=== PATIENT | female | born 1990 ===

== ENCOUNTER 2019-05-08 00:45 | Emergency (ER) | payer OTHER ==
--- NOTE | 2019-05-08 01:51 | Emergency Department Report ---
ED Psych HPI - General Chief Complaint: Psych Stated Complaint: MH EVAL Time Seen by Provider: 05/08/19 01:46 Source: patient Mode of arrival: Ambulatory - History of Present Illness Initial Comments: Patient is a 28-year-old female that presents emergency with complaints of suic idal ideations, racing thoughts, needing mental evaluation. Patient states she can't control her thoughts. Patient states she has suicidal ideation but no plan. Patient states she is having audiovisual hallucinations. Patient states her family is after her. MD Complaint: suicidal ideation, feels depressed -: Sudden Associated Psychiatric Symptoms: suicidal ideation, racing thoughts, auditory hallucinations, visual hallucinations, delusions History of same: Yes Quality: constant Improves With: none Worsens With: none Associated Symptoms: denies other symptoms If Self Harm: admits thoughts of - Related Data Home Medications Medication Instructions Recorded Confirmed Last Taken Unobtainable 05/08/19 05/08/19 Unknown Allergies Allergy/AdvReac Type Severity Reaction Status Date / Time No Known Allergies Allergy Verified 05/08/19 00:50 ED Review of Systems ROS: Stated complaint: EVAL Other details as noted in HPI Constitutional: denies: chills, fever Eyes: denies: eye pain, eye discharge, vision change ENT: denies: ear pain, throat pain Respiratory: denies: cough, shortness of breath, wheezing Cardiovascular: denies: chest pain, palpitations Endocrine: no symptoms reported Gastrointestinal: denies: abdominal pain, nausea, diarrhea Genitourinary: denies: urgency, dysuria, discharge Musculoskeletal: denies: back pain, joint swelling, arthralgia Skin: denies: rash, lesions Neurological: denies: headache, weakness, paresthesias Psychiatric: as per HPI, auditory hallucinations, visual hallucinations, suicidal thoughts Hematological/Lymphatic: denies: easy bleeding, easy bruising ED Past Medical Hx - Past Medical History Previous Medical History?: Yes Hx Psychiatric Treatment: Yes (unable to assess) - Surgical History Past Surgical History?: No - Family History Family history: no significant - Social History Smoking Status: Former Smoker Substance Use Type: None - Medications Home Medications: Home Medications Medication Instructions Recorded Confirmed Last Taken Type Unobtainable 05/08/19 05/08/19 Unknown History ED Physical Exam - General Limitations: No Limitations General appearance: alert, in no apparent distress - Head Head exam: Present: atraumatic, normocephalic - Eye Eye exam: Present: normal appearance - ENT ENT exam: Present: mucous membranes moist - Neck Neck exam: Present: normal inspection - Respiratory Respiratory exam: Present: normal lung sounds bilaterally. Absent: respiratory distress - Cardiovascular Cardiovascular Exam: Present: regular rate, normal rhythm. Absent: systolic murmur, diastolic murmur, rubs, gallop - GI/Abdominal GI/Abdominal exam: Present: soft, normal bowel sounds - Extremities Exam Extremities exam: Present: normal inspection - Back Exam Back exam: Present: normal inspection - Neurological Exam Neurological exam: Present: alert, oriented X3 - Expanded Psychiatric Exam Expanded Focused psych exam: Present: pressured speech, internal stimuli, delusional, restlessness, flight of ideas - Skin Skin exam: Present: warm, dry, intact, normal color. Absent: rash ED Course Vital Signs 05/08/19 05/08/19 05/08/19 01:10 01:38 08:55 Temperature 97.9 F 98.0 F 98.8 F Pulse Rate 86 100 H 104 H Respiratory 18 20 Rate Blood Pressure 110/60 111/76 109/72 [Right] O2 Sat by Pulse 96 99 100 Oximetry - Reevaluation(s) Reevaluation #1: Initial evaluation done. Patient found to have acute psychosis with suicidal ideation without a plan. Due to the fact the patient is having acute psychosis with autoimmune disorder hallucinations, the patient will placed on a 1013 05/08/19 01:48 Reevaluation #2: Patient is medically cleared. Patient will remain ER. Patient is a 1013 and final disposition will come from our psychiatry team. 05/08/19 03:47 ED Medical Decision Making - Lab Data Result diagrams: 05/08/19 01:56 05/08/19 01:56 - Medical Decision Making Patient is a 28-year-old female that presents emergency with complaints of delusions, suicidal ideations, erratic behavior. Patient was placed on 1013 for her symptoms. Patient had labs done. Patient's labs were unremarkable. Patient was medically cleared. Patient's final disposition was received from the psychiatry team and the patient was transferred to a inpatient unit. - Differential Diagnosis suicidal ideations, acute psychosis, delusions, Critical care attestation.: If time is entered above; I have spent that time in minutes in the direct care of this critically ill patient, excluding procedure time. ED Disposition Clinical Impression: Acute psychosis, Delusion, Suicidal ideation Disposition: [id number] PSY HOSP/PSY UNIT Is pt being admited?: No Does the pt Need Aspirin: No Condition: Stable Referrals: PRIMARY CARE, [Primary Care Provider] - 2-3 Days Time of Disposition: 03:47
[2019-05-08 02:20] LABS: Basophils % (Auto) 0.7 % (0.0-1.8); Eosinophils % (Auto) 0.5 % (0.0-4.3); Hematocrit 38.3 % (30.3-42.9); Lymphocytes # (Auto) 1.4 K/mm3 (1.2-5.4); Lymphocytes % (Auto) 21.5 % (13.4-35.0); Mean Corpuscular HGB Conc 34 % (30-34); Mean Corpuscular Volume 79 fl (79-97); Monocytes # (Auto) 0.7 K/mm3 (0.0-0.8); Monocytes % (Auto) 11.6 % (0.0-7.3); Platelet Count 237 K/mm3 (140-440); Red Blood Count 4.83 M/mm3 (3.65-5.03); Red Cell Distribution Width 13.8 % (13.2-15.2)
[2019-05-08 02:25] LABS: Bacteria,Urine 2+ /HPF (Negative); Bilirubin,Urine NEG (Negative); Blood,Urine NEG (Negative); Color,Urine Amber (Yellow); Mucus,Urine 3+ /HPF; Protein,Urine <15 mg/dL mg/dL (Negative)
[2019-05-08 02:34] LABS: Amphetamine Screen,Urine PRESUMPTIVE NEGATIVE; Benzodiazepines Screen,Urine PRESUMPTIVE NEGATIVE; Cannabinoid Screen,Urine PRESUMPTIVE NEGATIVE; Cocaine Screen,Urine PRESUMPTIVE NEGATIVE; Methadone Screen,Urine PRESUMPTIVE NEGATIVE; Opiate Screen,Urine PRESUMPTIVE NEGATIVE
[2019-05-08 02:42] LABS: Alanine Aminotransferase 36 units/L (7-56); Albumin 4.6 g/dL (3.9-5); BUN/Creatinine Ratio 15; Blood Urea Nitrogen 12 mg/dL (7-17); Calcium 9.6 mg/dL (8.4-10.2); Hemolysis Index 1
[2019-05-08] MEDS ORDERED: ZIPRASIDONE MESYLATE 20 MG VIAL IM ONE (08:23)
[2019-05-08] MEDS ORDERED: WATER FOR INJ Sterile (PF) 10 ML ONE (08:28)
[2019-05-08 08:56] VITALS: BP 109/72
--- NOTE | 2019-05-08 09:58 | Cat Scan Report ---
CT HEAD WITHOUT CONTRAST INDICATION / CLINICAL INFORMATION: AMS. TECHNIQUE: All CT scans at this location are performed using CT dose reduction for ALARA by means of automated e xposure control. COMPARISON: None available. FINDINGS: HEMORRHAGE: No evidence of intracranial hemorrhage or extra-axial fluid collection. EXTRA-AXIAL SPACES: Cortical sulci, sylvian fissures and basilar cisterns have an unremarkable appear ance. VENTRICULAR SYSTEM: The ventricular system is of normal size and configuration. CEREBRAL PARENCHYMA: No areas of abnormal brain parenchymal attenuation are identified. There is no i ndication of recent infarction. MIDLINE SHIFT OR HERNIATION: There is no mass effect. CEREBELLUM / BRAINSTEM: Brainstem and cerebellum have an unremarkable appearance. INTRACRANIAL VESSELS:No abnormalities are identified on this noncontrast head CT. ORBITS: visualized portions of the orbits have an unremarkable appearance. SOFT TISSUES of HEAD: No significant abnormality. CALVARIUM: Evaluation of bone windows reveals no abnormalities. PARANASAL SINUSES / MASTOID AIR CELLS: Paranasal sinuses are free from inflammatory mucosal disease. Mastoid air cells are normally pneumatized. ADDITIONAL FINDINGS: None. IMPRESSION: 1. Normal head CT. Signer Name: Jorje Lechuga MD Signed: 05/08/2019 9:54 AM Workstation Name: [id number]
== END 2019-05-08 18:01 ==
LOC: ED 00:45 → EEVIPCON 00:45 → ED 18:01
DX: F23 Brief psychotic disorder (principal); F22 Delusional disorders; R45.851 Suicidal ideations; Z87.891 Personal history of nicotine dependence
CPT/HCPCS: 36415; 70450; 80053; 80307; 81001; 84443; 84703; 85025; 96372; 99285; J3486; 80320; G0480